=== PATIENT | female | born 1985 | race Caucasian/White ===

== ENCOUNTER 2017-01-29 00:01 | Inpatient (IN) | payer OTHER ==
[2017-01-29] MEDS ORDERED: OXYTOCIN/DEXTROSE 5%-WATER 30 UNITS/500 ML BAG IV ONE ×3 (00:07→16:43)
[2017-01-29] MEDS ORDERED: ONDANSETRON HCL/PF 2 MG/ML VIAL IV PRN ×3 (00:07→09:07)
[2017-01-29] MEDS ORDERED: LIDOCAINE HCL 50 ML VIAL PERI PRN (00:07)
[2017-01-29] MEDS ORDERED: RINGER'S SOLUTION,LACTATED 1,000 ML IV PRN (00:07)
[2017-01-29] MEDS ORDERED: BUTORPHANOL TARTRATE 2 MG/ML VIAL IV PRN (00:07)
[2017-01-29] MEDS ORDERED: RINGER'S SOLUTION,LACTATED 1,000 ML IV ONE (00:07)
[2017-01-29] MEDS ORDERED: NALOXONE HCL 1 MG/1 ML SYRG IV PRN ×2 (07:46→09:07)
[2017-01-29] MEDS ORDERED: BUPIVACAINE HCL/0.9 % NACL/PF 250 ML EP PRN ×4 (07:46→09:07)
[2017-01-29] MEDS ORDERED: fentaNYL CITRATE/PF 50 MCG/ML AMPUL IT SCH ×3 (08:00→09:15)
--- NOTE | 2017-01-29 08:53 | PN ---
Progess Note - Interim Narrative: 01/29/17 08:48 fDoing well, feeling contractions VSS SVE: /-2, cephalic, AROM with clear fluid [place]: q2 min FHTs: 140's, mod variability, no decel, + accels A/P: Anticipate Epidural prn
[2017-01-29] MEDS ORDERED: BUPIVACAINE HCL/PF 30 ML VIAL EP SCH (09:00)
--- NOTE | 2017-01-29 09:10 | OR ---
Anesthesia Pre Procedure Eval Date of Service: 01/29/17 Pre Procedure Evaluation: Last Vital Signs Temp 36.2 C L 03/03/15 00:22 Pulse Resp BP 103/64 03/03/15 00:22 Pulse Ox Anesthesia Pre Procedure Evaluation Heart Rate: 94 Blood Pressure: 115/74 Temperature: 96.7C Respiratory Rate: 16 SaO2: 99 DATE: 01/29/2017 TIME: 904 INDICATIONS: Active labor, labor pain PAST MEDICAL HISTORY: For a patient in active labor requesting labor analgesia History of GERD: No History of smoking: No History of sleep apnea: No EXAM: Heart regular; lungs clear ASSESSMENT OF MEDICAL STATUS: Appropriate candidate for labor analgesia PLANNED PROCEDURE: Combinations final epidural for labor analgesia Home Medications: HOME MEDICATIONS Prenat Vit Comb.10/Iron/FA/Dha [Vitafol-Ob+Dha Combo Pack] 1 each PO DAILY #0 combo..pkg 09/09/12 [Last Taken 01/29/17] Alegra 180 mg PO DAILY 01/29/17 [Last Taken 01/28/17]
--- NOTE | 2017-01-29 09:34 | OR ---
Anesthesia Procedure Note - Anesthesia Procedure Note Date of Service: 01/29/17 Narrative: Vital Signs - Last Taken Temp 36.2 C L 03/03/15 00:22 Pulse Resp BP 103/64 03/03/15 00:22 Pulse Ox 01/29/17 09:29 ANESTHESIA PROCEDURE NOTE Date of Procedure: 01/29/2017 Time of procedure: 904. Performed by: GUICHO Blue CRNA, MSN Motion Picture Director: Sue Ramirez RN. Preprocedure diagnosis: Active labor, labor pain. Post procedure diagnosis: Same. Procedure:Epidural for labor analgesia L3 4. Indications: Labor pain. Findings: See below. Details of the procedure: The patient was placed on the side of the bed in sitting positionand prepped with DuraPrep then draped in a sterile fashion. Lidocaine 1% was infiltrated to the skin and subcutaneous tissues at the level of the L3 4 interspace. An 18-gauge Touhy needle was used to approach the epidural space with loss of resistance technique. Once loss of resistance was achieved a 24-gauge Pencan needle was passed through the epidural needle and CSF was contacted. After CSF returned fentanyl 20 mcg of fentanyl was injected in the spinal needle was removed the epidural catheter was then threaded approximately 4 cm in the epidural needle was removed. The catheter was taped in place and after careful aspiration 3 mL of 1.5% lidocaine with 1-200,000 epinephrine was injected without change in maternal heart rate or sensorium. . EBL: Minimal. Fluids: N/A. Specimen: N/A. Post procedure condition: The patient tolerated the procedure well with. Good Relief. No complications were noted. Thank you for this consultation. Asaf Jackson CRNA, ARNP, MSN
[2017-01-29] MEDS: DEXTROSE 5%-LACTATED RINGERS 1,000 ML IV PRN ×2 (09:55→14:30)
[2017-01-29] MEDS ORDERED: BENZOCAINE/MENTHOL 81 SPRAY CAN TP PRN (16:43)
[2017-01-29] MEDS ORDERED: HYDROCORTISONE 30 APPL TUBE TP PRN (16:43)
[2017-01-29] MEDS ORDERED: GLYCERIN/WITCH HAZEL LEAF 40 APPL BOX TP PRN (16:43)
[2017-01-29] MEDS ORDERED: SENNOSIDES 8.6 MG TABLET PO PRN (16:43)
[2017-01-29] MEDS ORDERED: oxyCODONE HCL/ACETAMINOPHEN 1 TAB TABLET PO PRN ×2 (16:43)
[2017-01-29] MEDS ORDERED: BISACODYL 10 MG SUPP.RECT RC PRN (16:43)
--- NOTE | 2017-01-29 16:50 | OR ---
Operative Report - Dictated Report Narrative: Spontaneous Vaginal Delivery Viable female with APGARS of 9 at 1 minute and 9 at 5 minutes. Delivered at 1626. Presentation was YUMIKO. A loose nuchal cord was noted and reduced over the baby' s head. A nuchal arm was also noted and delivered prior to the anterior shoulder. The anterior shoulder delivered with gentle downward traction followed by the remainder of the baby. The cord was clamped and cut after approximately 60 seconds. Weight: 7 pounds 15.0 ounces or 3602 g Placenta was delivered spontaneously and intact. No lacerations were noted. Estimated blood loss: 100 ml Mother and baby tolerated delivery well. History for Definition: * The number of deliveries resulting in a live the patient experienced prior to current hospitalization * The previous delivery of live twins or any live multiple gestation is considered one live event. *If primagravida or nulliparous is documented select zero for the number of previous live births. Live Events: 2
[2017-01-29] MEDS: IBUPROFEN 800 MG TABLET PO PRN (19:28)
[2017-01-30] MEDS: DOCUSATE SODIUM 100 MG CAPSULE PO SCH ×4 (02:20→21:04)
[2017-01-30] MEDS: IBUPROFEN 800 MG TABLET PO PRN ×2 (02:49→10:41)
--- NOTE | 2017-01-30 09:55 | PN ---
Progess Note - Interim Narrative: 01/30/17 09:55 progress note Subjective: The patient is doing well. She is ambulating, voiding, tolerating by mouth. She has minimal pain and moderate lochia. Objective: General: No acute distress Abdomen: Soft, nontender, fundus is firm just below the umbilicus Extremities: minimal edema, nontender to palpation Assessment and plan: day 1 Feeding: Breast Pain: Controlled with by mouth medication Routine care.
[2017-01-31] MEDS: DOCUSATE SODIUM 100 MG CAPSULE PO SCH (08:38)
--- NOTE | 2017-01-31 13:03 | PN ---
Progess Note - Interim Narrative: 01/31/17 13:02 progress note Subjective: The patient is doing well. She is ambulating, voiding, tolerating by mouth. She has minimal pain and moderate lochia. Objective: General: No acute distress Abdomen: Soft, nontender, fundus is firm just below the umbilicus Extremities: minimal edema, nontender to palpation Assessment and plan: day 2 Feeding: Breast Pain: Controlled with by mouth medication Routine care.
[2017-01-31 14:44] VITALS: BP 115/68
== END 2017-01-31 14:20 | disposition home or self-care (01) | DRG 775 ==
LOC: OB 00:01 → MS 22:53
PROVIDERS: ADMIT Obstetrics & Gynecology Gynecologic Oncology; ATTEND Obstetrics & Gynecology Gynecologic Oncology
PROC: 10E0XZZ Delivery of Products of Conception, External Approach (ICD-10-PCS; principal; 2017-01-29)
PROC: 10907ZC Drainage of Amniotic Fluid, Therapeutic from Products of Conception, Via Natural or Artificial Opening (ICD-10-PCS; 2017-01-29)
PROC: 3E033VJ Introduction of Other Hormone into Peripheral Vein, Percutaneous Approach (ICD-10-PCS; 2017-01-29)
PROC: 4A1HXCZ Monitoring of Products of Conception, Cardiac Rate, External Approach (ICD-10-PCS; 2017-01-29)
PROC: 00HU33Z Insertion of Infusion Device into Spinal Canal, Percutaneous Approach (ICD-10-PCS; 2017-01-29)
DX: O69.81X0 Labor and delivery complicated by cord around neck, without compression, not applicable or unspecified (principal); K21.9 Gastro-esophageal reflux disease without esophagitis; Z3A.39 39 weeks gestation of pregnancy; Z37.0 Single live birth